=== PATIENT | female | born 1975 ===

== ENCOUNTER 2023-02-15 06:55 | Outpatient (CLI) | payer OTHER, SELFPAY ==
--- NOTE | 2023-02-15 07:03 | ECG_ITS ---
Measurements Intervals [place] Rate: 75 P: 77 NE: 156 QRS: 84 QRSD: 84 T: 71 QT: 366 QTc: 411 Interpretive Statements SINUS RHYTHM POSSIBLE LEFT ATRIAL ENLARGEMENT [-0.1mV P WAVE IN V1/V2] BORDERLINE ECG NO PREVIOUS ECG AVAILABLE FOR COMPARISON Electronically Signed On 02-15-2023 14:37:21 CDT by Kentrell Davis M.D.
== END 2023-02-15 06:56 | disposition home or self-care (01) ==
LOC: ANHLAB 06:58
PROVIDERS: Visit Provider Anesthesiology
DX: Z01.818 Encounter for other preprocedural examination (principal); R93.1 Abnormal findings on diagnostic imaging of heart and coronary circulation; E78.5 Hyperlipidemia, unspecified
CPT/HCPCS: 93005

== ENCOUNTER 2023-02-18 01:46 | Day surgery (SDC) | payer OTHER, SELFPAY ==
[2023-02-11 11:00] VITALS: BMI 23.4
--- NOTE | 2023-02-11 11:20 | PC.NURSE ---
Report to the Outpatient Waiting Room, entrance under the green pavilion located off [facility], at time _8:30_ on date _02/18/23_. Planned Procedure Time: _10:30__. Time changes happen often and if your time is changed the preop area will call you the afternoon before. - You and your visitor will be asked to self-screen and do not enter if you have any COVID symptoms. - A mask is optional within the hospital at this time. Patients may have clear liquids (water, carbonated beverages, clear teas, apple juice) until 3 hours prior to surgery with a maximum of 20 ounces. - No food from midnight until time of surgery Take the following medications with a SIP of water the morning of surgery: ___NONE DO NOT STOP ANY OF YOUR OTHER PRESCRIPTION MEDICATIONS PRIOR TO SURGERY ?EXCEPT THE FOLLOWING Medications to discontinue per physician NONE Date to take last dose___N/A Please no make-up, nail irish, hairspray, perfume, deodorant, or body powder the day of surgery. No jewelry (including any body piercings) or valuables the day of surgery, leave them at home. Please take a shower or bath the night before, or the morning of, surgery with an antibacterial soap. Wear comfortable, loose fitting clothing. - Jewelry must be removed prior to entering the operating room. Rings and piercings that are not removed may be cut off. - The hospital will not accept responsibility for valuables. - Please leave all valuables, including medications, at home the day of surgery. If you are going home after surgery, a licensed driver courier must drive you home. - NO public transportation without another adult if you receive anesthesia. - We recommend that an adult stay with you for 24 hours following discharge. - We also recommend that you do not drive, make important decision, drink alcoholic beverages, or take any drugs that were not prescribed by your health care provider for at least 24 hours after your discharge time. Follow any additional instructions given to you from your surgeon. If you or anyone in your household have experienced Covid symptoms in the past week, please notify your surgeon or the nurse liaison at the phone number below for possible testing. Telephone instructions given to ___RUTHIE and asked if any additional questions and then verbalized understanding. Patient advised to call surgeon office or pre surgery nurse liaison [phone] if any additional questions.
[2023-02-18] VITALS (9 sets, daily range): BP systolic 102–121; BP diastolic 64–77; PULSE 70–83; RESP 12–18; TEMP 36.2–36.5; O2SAT 99–100
[2023-02-18] MEDS: LACTATED RINGERS 1,000 ML 30 ML IV CONT ×2 (08:45→11:39)
[2023-02-18] MEDS: ACETAMINOPHEN 500 MG TABLET 1000 MG PO (08:46)
[2023-02-18] MEDS: KETOROLAC 15 MG/ML VIAL (*BKC) IV PUSH (08:47)
--- NOTE | 2023-02-18 10:21 | WPDHPUPDATE1 ---
History and Physical Update Update Date/Time: 02/18/23 10:21 History and Physical has been reviewed, including an updated exam of the patient. There are NO changes in the patient's condition. Risks, benefits, and alternatives have been discussed and questions answered. Patient agrees to proceed with procedure.
--- NOTE | 2023-02-18 10:44 | P.PNAN_ITS ---
Anes - Initial Pre Proc Eval Procedure: Operation Date: 02/18/23 10:30 Proposed Procedures p Laparoscopic Bilateral Salpingectomy - Hoda Moncada MD Date/Time: 02/18/23 10:44 Surgeon: Hoda Moncada MD Pre Op Diagnosis: sterilization Patient Data Age: 47 Gender: F Height: 1.6 m Weight: 60.9 kg Last Vital Signs Temp 36.5 C 02/18/23 08:10 Pulse 77 02/18/23 08:10 Resp 18 02/18/23 08:10 BP 108/65 02/18/23 08:10 Pulse Ox 100 02/18/23 08:10 O2 Del Method Room Air 02/18/23 08:10 Allergies Allergy/AdvReac Type Severity Reaction Status Date / Time No Known Allergies Allergy Unknown N Verified 02/11/23 11:09 Home Medications Medication Instructions Recorded Confirmed Type atorvastatin 10 mg tablet 10 mg PO DAILY 03/09/19 02/18/23 History amitriptyline 10 mg tablet 10 mg PO DAILY 02/11/23 02/18/23 History Patient hx anesthesia problems: none Family hx anesthesia problems: none Results Review: All pre-operative results and documents have been reviewed as part of the pre- operative evaluation. [facility] Past Medical History Medical History Ovarian cyst Surgical History Surgical History H/O section (~07/20/08) H/O section (~02/19/01) H/O laparoscopy (~06/19/00) History of cholecystectomy (~08/19/04) Family History Family History Grandparent Diabetes mellitus Family history of kidney disease Family history of coronary artery disease Father Family history of hypercholesterolemia Hypertension Mother Family history of hypercholesterolemia Family history of hypothyroidism Sibling Family history of hypothyroidism Social History Social History Smoking packs per day: 0.25 Smoking cigarettes per day: 5.0 Years smoked: 10 Smoking pack-years: 2.50 Smoking status: Former smoker Tobacco type: cigarettes Alcohol intake: current Substance use: never Substance use type: does not use Last use: 2020 Living arrangements: with family Spiritual care concerns: No Anes - Eval Final PreProcedure Day of Procedure 02/18/23 10:44 Patient weight: normal Heart: regular rate and rhythm Lungs: clear to auscultation Airway: Mallampati scale class II Neurological: alert and oriented Last oral intake: >/= 8 hours ASA classification: II Emergent: no Anesthetic plan: proceed Anesthesia type and monitoring: general ETT and standard monitoring Results Review: All pre-operative results and documents have been reviewed as part of the pre- operative evaluation. Informed Consent: The patient's anesthetic plan and its attendant risks and benefits were di scussed with the patient/family/POA. Questions were solicited and answers provided to the satisfaction of the patient/family/POA.
--- NOTE | 2023-02-18 11:47 | W.PM.PROC2 ---
Procedure Note - Detailed Date of Procedure 02/18/23 Pre-op Diagnosis sterilization Post-op Diagnosis Same Procedure Performed Laparoscopic bilateral salpingectomy Surgeon Hoda Moncada MD Anesthesia General Indications Unwanted fertility Findings Normal pelvic anatomy Description of Procedure The patient was taken the operating room. She was prepped and draped in the dorsal lithotomy position after induction of general anesthesia. A 5 mm skin incision was made in the left upper quadrant of the abdominal skin. A 5 mm trocar was inserted the intra-abdominal cavity under direct visualization of the scope. Pneumoperitoneum was achieved. A 5 mm trocar was inserted in the left lower quadrant identical fashion. A 5 mm infraumbilical trocar was inserted in identical fashion as well. The bilateral fallopian tubes were removed. This was done by using a LigaSure cautery. The mesosalpinx adjacent to the tube was cauterized transected with LigaSure. This was initiated in the area the ovary and in a stepwise fashion moved medially to the area of the cornu of the uterus. Once there the fallopian tube was cauterized and transected. This was done in identical fashion on each side. The fallopian tubes were taken out through the left lower quadrant trocar site. The pneumoperitoneum was reduced. The trocars removed. The skin was closed with subcuticular 4 Monocryl and covered with Dermabond. She was taken to cover stable condition. Sponge lap and needle counts were correct x2. Estimated Blood Loss 5 Drains No Packing No Pathology Yes Complications No immediate complications Condition Stable Disposition PACU
== END 2023-02-18 13:28 | disposition home or self-care (01) ==
PROVIDERS: Visit Provider Obstetrics & Gynecology
PROC: (CPT 49320; principal; 2023-02-18 10:30)
DX: Z30.2 Encounter for sterilization (principal); N83.8 Other noninflammatory disorders of ovary, fallopian tube and broad ligament; Z87.891 Personal history of nicotine dependence
CPT/HCPCS: 58661; 88302; 93005; A9270; J1100; J1170; J1885; J2250; J2405; J2704; J3010; J7030; J7120